=== PATIENT | female | born 2000 | race Hispanic/Latino ===

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

== ENCOUNTER 2020-12-01 20:39 | Emergency (ER) | payer OTHER ==
[2020-12-01] MEDS ORDERED: Acetaminophen 500 MG TAB ONE (21:04)
[2020-12-01] MEDS ORDERED: Ibuprofen 800 MG TAB ONE (21:04)
== END 2020-12-01 21:40 | disposition home or self-care (01) ==
LOC: ERS 20:39
DX: M79.644 Pain in right finger(s) (principal); Z87.828 Personal history of other (healed) physical injury and trauma

== ENCOUNTER 2021-02-28 22:00 | Emergency (ER) | payer BC ==
[2021-02-28] MEDS ORDERED: Acetaminophen 500 MG TAB ONE (22:45)
[2021-02-28 23:10] LABS: Bilirubin Negative (Negative); Blood, Urine Negative (Negative); Clarity Turbid (Clear); Glucose, Urine (Dipstick) Normal (Negative); Ketone, Urine Negative (Negative); Leukocyte Negative Leu/uL (Negative); Nitrite Negative (Negative); Protein, Urine (Dipstick) Negative (Neg-Trace); Specific Gravity, Urine 1.012 (1.002-1.036); Urobilinogen Normal mg/dL (Less than 2); pH, Urine 6.5 (5.0-9.0)
== END 2021-03-01 00:21 | disposition home or self-care (01) ==
LOC: ERS 22:00
DX: O21.9 Vomiting of pregnancy, unspecified (principal); O99.891 Other specified diseases and conditions complicating pregnancy; R10.9 Unspecified abdominal pain; Z3A.18 18 weeks gestation of pregnancy
CPT/HCPCS: 81003